=== PATIENT | male | born 1985 | race Caucasian/White ===

== ENCOUNTER 2021-03-02 13:52 | Emergency (ER) | payer OTHER ==
[2021-03-02 14:07] VITALS: BP 136/78; PULSE 63; TEMP 98; BMI 29.1
[2021-03-02] MEDS ORDERED: DIPHTH,PERTUSS(ACELL),TET 0.5 ML DISP.SYRIN IM ONE ×2 (15:28→15:32)
== END 2021-03-02 15:43 | disposition home or self-care (01) ==
LOC: JER 13:52 → JERFT 13:52
PROC: 3E0234Z Introduction of Serum, Toxoid and Vaccine into Muscle, Percutaneous Approach (ICD-10-PCS; principal; 2021-03-02)
DX: S91.341A Puncture wound with foreign body, right foot, initial encounter (principal)
CPT/HCPCS: 73630-TC-RT-FY; 90471; 90715; 99284-25